=== PATIENT | male | born 1980 | race Caucasian/White ===

== ENCOUNTER 2021-02-23 22:10 | Emergency (ER) | payer SELFPAY ==
[2021-02-23 22:23] VITALS: BP 106/76; PULSE 103; RESP 18; TEMP 37; O2SAT 100; BMI 24.2
[2021-02-23 23:13] LABS: Appearance Urine UA CLOUDY; Bilirubin Urine UA NEGATIVE (NEGATIVE); Color Urine UA YELLOW; Glucose Urine UA NEGATIVE (Negative); Ketones Urine UA TRACE (NEGATIVE); Leukocyte Esterase Urine UA TRACE (NEGATIVE); Nitrite Urine UA NEGATIVE (Negative); Occult Blood Urine UA 3+ (Negative); Protein Urine UA 1+ (Negative); Specific Gravity Urine UA 1.025 (1.000-1.035); Urobilinogen Urine UA 0.2 E.U./dL (0.2); pH Urine UA 5.5 (4.5-8.0)
[2021-02-23 23:20] LABS: RBC Urine 30-100/HPF (0-5/HPF); WBC Urine 0-1/HPF (0-5/HPF)
[2021-02-23 23:21] LABS: Bacteria Urine Few (2-10); Mucus Urine 3+ (Negative)
[2021-02-23 23:22] LABS: Culture Indicated Urine Specimen Cultured; Squamous Epithelial Cell Urine 1-5 /HPF (0-5/HPF)
[2021-02-23 23:23] VITALS: PULSE 98; RESP 20; TEMP 36.9; O2SAT 98
--- NOTE | 2021-02-23 23:57 | DI.CT.S_ITS ---
PROCEDURE: CT ABDOMEN PELVIS WO/W CON INDICATIONS: painless hematuria TECHNIQUE: Optional 5 mm thick noncontrast images acquired from the diaphragm to the symphysis pubis. After the administration of intravenous contrast, 5 mm thick images acquired from the diaphragm to the symphysis pubis after a 10-minute delay. 2 mm thick coronal and sagittal reformats were then performed of the kidneys and ureters. For radiation dose reduction, the following was used: automated exposure control, adjustment of mA and/or kV according to patient size. COMPARISON: None. FINDINGS: Image quality: Excellent. Lung bases: Lung bases are clear. Heart size is normal. Tiny hiatal hernia. Urinary system: Both kidneys are normal in size, without hydronephrosis or nephrolithiasis on pre-contrast images. No perinephric fat stranding. There is normal bilateral renal enhancement. Renal calyces appear normal in morphology when filled with contrast. Opacified portions of both ureters demonstrate normal caliber. Bladder is mildly distended. Bladder wall thickness is normal. No calcified bladder stones. Other solid organs: Liver is normal in size and enhancement. Gallbladder is normal. Biliary system is non dilated. Pancreas enhances normally. Spleen is normal in size and enhancement. No adrenal nodules. Peritoneum and bowel: Bowel loops demonstrate normal wall thickness and caliber. There is a large amount of stool in colon. No free fluid or air. Nodes and vessels: No retroperitoneal or mesenteric adenopathy by size criteria. Aorta and inferior vena cava are normal in size. Abdominal wall: No ventral hernias. Pelvis: No pathologic free pelvic fluid. No inguinal hernias. Mildly enlarged inguinal lymph nodes are present measuring 1.5 cm on the right and 1.0 cm on the left. Bones: No suspicious bony lesions. No vertebral body compression fractures. IMPRESSION: 1. A cause for painlesss hematuria is not identified. 2. Mildly distended urinary bladder, which could be secondary to urinary holding or urinary retention. 3. Mild inguinal lymphadenopathy bilaterally, most likely reactive. Recommend clinical follow-up. 4. A large amount of stool in colon. No significant discrepancy with the [employer] 2nd shift radiology preliminary report. Dictated by: Niru Chambers M.D. on 02/24/2021 at 7:19 Approved by: Niru Chambers M.D. on 02/24/2021 at 7:25
--- NOTE | 2021-02-24 00:02 | ED.MALEGU ---
HPI - Male Genitourinary General Chief complaint: Urogenital-Male Stated complaint: Peeing Blood Time Seen by Provider: 02/23/21 22:28 Source: patient Mode of arrival: Ambulatory Limitations: no limitations History of Present Illness HPI Narrative: 40-year-old male nonsmoker with noncontributory medical history presents with a chief complaint of 24 hours of painless hematuria. He denies any fever chills nor back pain or suprapubic pain. He does have some discomfort with urination and states that at times it is pure blood that he has out and other times it is urine that is blood tinged. He denies any recent dietary change trauma or injury. He denies use of blood thinners. He is not dizzy nor weak or lightheaded denies fever or chills. Related Data Previous Rx's Medication Instructions Recorded epinephrine 0.3 mg/0.3 mL 0.3 mg IJ PRN PRN #1 eddie 06/01/16 injection, auto-injector Allergies Allergy/AdvReac Type Severity Reaction Status Date / Time shellfish derived Allergy Verified 02/23/21 22:23 Review of Systems Review of Systems Narrative: GENERAL: Denies chills, fatigue, malaise, fever, sweats. HEENT: Denies sinus pain, ear pain, sore throat, difficulty swallowing, dizziness. RESPIRATORY: Denies dyspnea, cough, wheezing, hemoptysis, sputum. CARDIOVASCULAR: Denies chest pain, palpitations, orthopnea, edema, GASTROINTESTINAL: Denies nausea, vomiting, abdominal pain, diarrhea, constipation, melena. : See HPI MUSCULOSKELETAL: denies weakness, joint pain, or bony pain SKIN: Denies rash, skin lesions, or other NEUROLOGIC: Denies weakness, headache, numbness, change in speech, confusion, seizures, incoordination. PSYCHIATRIC: No concerning psychosocial issues. 12 point review of systems is negative except for those stated above Patient History Social History Smoking Status: Never smoker Smoking Status: Never smoker Substance Use Type: does not use Exam Narrative Exam Narrative: GENERAL: [40] year old patient appears stated age. Well-developed patient, in mild distress. HEAD: Atraumatic. Normocephalic. EYES: Pupils equal round and reactive. Extraocular motions intact. No scleral icterus. No injection or drainage. ENT: Nose without bleeding, purulent drainage. Throat without erythema, tonsillar hypertrophy or exudate. Airway patent. NECK: Trachea midline. Non tender CARDIOVASCULAR: Regular rate and rhythm without murmurs, gallops, or rubs. RESPIRATORY: Clear to auscultation. Breath sounds equal bilaterally. No wheezes, rales, or rhonchi. GASTROINTESTINAL: Abdomen soft, non-tender, nondistended. EXTREMITIES: No edema or joint tenderness. BACK: Nontender without deformity or crepitance. No flank tenderness. NEURO: AOx3. SKIN: No rash or erythema of visible areas Initial Vital Signs Initial Vital Signs: Vital Signs Temperature 98.6 F 02/23/21 22:23 Pulse Rate 103 H 02/23/21 22:23 Respiratory Rate 18 02/23/21 22:23 Blood Pressure 106/76 02/23/21 22:23 Pulse Oximetry 100 02/23/21 22:23 Course Orders Ordered: ED Orders 02/23/21 22:45 Urinalysis and Microscopic Stat Urine Culture Stat 02/23/21 23:57 CT abdomen pelvis wo/w con Stat Basic Metabolic Panel Stat Complete Blood Count AUTO DIFF Stat Discontinued Medications Sodium Chloride (Normal Saline 0.9%) 1,000 mls @ 1,000 mls/hr IV BOLUS ONE Stop: 02/24/21 00:56 Last Admin: 02/24/21 00:17 Dose: 1,000 mls/hr Documented by: GONZÁLEZ Ketorolac Tromethamine (Ketorolac 30 Mg/Ml Vial) 15 mg IV NOW ONE Stop: 02/24/21 00:53 Last Admin: 02/24/21 01:15 Dose: 15 mg Documented by: GONZÁLEZ Vital Signs Vital signs: Vital Signs - 8 hr 02/23/21 22:23 02/23/21 23:23 Temperature 98.6 F 98.4 F Pulse Rate 103 H 98 H Respiratory Rate 18 20 Blood Pressure 106/76 Pulse Oximetry 100 98 MDM - Male Genitourinary Lab Data Result diagrams: 02/24/21 00:10 02/24/21 00:10 Labs: Lab Results 02/23/21 02/24/21 02/24/21 Range/Units 22:45 00:10 00:10 WBC 5.5 (4.5-11.0) X10^3/uL RBC 4.66 (4.5-5.9) X10^6/uL Hgb 13.7 (13.5-17.5) g/dL Hct 41.2 (41-53) % MCV 88.4 (80-100) fL MCH 29.4 (26-34) PG MCHC 33.2 (30-36) % RDW 12.3 (11.6-14.8) % Plt Count 203 (150-400) X10^3/uL Neut % (Auto) 60.0 (50-75) % Lymph % (Auto) 23.6 L (25-40) % [place] % (Auto) 10.0 (3-14) % Eos % (Auto) 5.8 H (2-4) % Baso % (Auto) 0.6 (0-2) % Neut # (Auto) 3300 (9589-5972) /uL Lymph # (Auto) 1300 (0121-4603) /uL [place] # (Auto) 600 (0-900) /uL Eos # (Auto) 300 (0-450) /uL Baso # (Auto) 0 (0-100) /uL Sodium 138 (137-145) mmol/L Potassium 4.3 (3.4-5.1) mmol/L Chloride 101 (98-107) mmol/L Carbon Dioxide 32 (22-32) mmol/L BUN 17 (9-20) mg/dL Creatinine 1.01 (0.66-1.25) mg/dL Estimated GFR > 60.0 (>60) mL/min BUN/Creatinine Ratio 16.8 (6-22) Glucose 99 (70-100) mg/dL Calcium 9.0 (8.4-10.2) mg/dL Urine Color Yellow Urine Appearance Cloudy Urine pH 5.5 (4.5-8.0) Ur Specific [place] 1.025 (1.000-1.035) Urine Protein 1+ H (Negative) Urine Glucose (UA) Negative (Negative) g/dL Urine Ketones Trace H (NEGATIVE) Urine Occult Blood 3+ H (Negative) Urine Nitrate Negative (Negative) Urine Bilirubin Negative (NEGATIVE) Urine Urobilinogen 0.2 (0.2) E.U./dL Ur Leukocyte Esterase Trace H (NEGATIVE) Urine RBC 30-100/hpf H (0-5/HPF) Urine WBC 0-1/hpf (0-5/HPF) Ur Squamous Epith Cells 1-5 /hpf (0-5/HPF) Urine Bacteria Few (2-10) H (None) Urine Mucus 3+ H (Negative) Ur Culture Indicated? Specimen cultured Imaging Data CT scan - abdomen/pelvis: Radiologist's Impression: Mild distension of the right aspect of the colon the stool, no renal mass, no hydronephrosis, no kidney stone MDM Narrative Medical decision making narrative: Patient with painless hematuria and a very reassuring physical exam and labs. CT IVP shows no concerning findings or symptoms. Patient has stable vitals, return precautions given, stressed the importance of follow-up with Urology. Questions answered to his apparent satisfaction Discharge Plan Departure Patient Disposition: Home Clinical Impression: Hematuria Activity Restrictions/Additional Instructions: *You have been diagnosed with [hematuria without evidence of anemia, infection, or findings on CT scan.] *What to do: *Please continue to take your regular medications as directed. [ ] New medication prescriptions sent to your pharmacy: [ ] [ ] New medication written as a paper prescription [ x] No new medications given *Please follow up with Dr. Hopson of Urology in 2-3 days, call for an appointment. Let them know you were seen in the Emergency Department and that we ask that you be seen in follow up. We will electronically transmit a record of today's note if your PCP is in our system *If you do not have a primary care provider please contact the [facility] Resource line at [phone]. They will ask some questions about your medical history and help get you set up with a doctor in the community. *Return to Emergency Department if you should have any new, worsening or concerning symptoms, such as [fever greater than 101 F, shaking chills, worsening pain, persistent vomiting or other bothersome symptoms] Prescriptions: No Action epinephrine 0.3 MG/0.3 ML auto-injector 0.3 mg IJ PRN PRNQty: 1 RF: 0 Referrals: Salinas Oneal MD [Primary Care Provider] - Karen Hopson MD [Physician] -
[2021-02-24] MEDS: SODIUM CHLORIDE 0.9% 1,000 ML 1000 ML IV (00:17)
[2021-02-24 00:20] LABS: Add Manual Diff / Slide Review NO; Basophils Absolute Auto 0 /uL (0-100); Basophils Percent Auto 0.6 % (0-2); Eosinophils Absolute Auto 300 /uL (0-450); Eosinophils Percent Auto 5.8 % (2-4); Hematocrit 41.2 % (41-53); Hemoglobin 13.7 g/dL (13.5-17.5); Lymphocytes Absolute Auto 1300 /uL (1100-4500); Lymphocytes Percent Auto 23.6 % (25-40); Mean Corpuscular HGB Conc 33.2 % (30-36); Mean Corpuscular Hemoglobin 29.4 PG (26-34); Mean Corpuscular Volume 88.4 fL (80-100); Monocytes Absolute Auto 600 /uL (0-900); Neutrophils Absolute Auto 3300 /uL (1500-7000); Platelet Count 203 X10^3/uL (150-400); Red Blood Cell Count 4.66 X10^6/uL (4.5-5.9); Red Cell Distribution Width 12.3 % (11.6-14.8); White Blood Cell Count 5.5 X10^3/uL (4.5-11.0)
[2021-02-24 00:32] LABS: BUN Creatinine Ratio 16.8 (6-22); Blood Urea Nitrogen 17 mg/dL (9-20); Carbon Dioxide 32 mmol/L (22-32); Chloride 101 mmol/L (98-107); Estimated Glomerular Filt Rate > 60.0 mL/min (>60); Glucose 99 mg/dL (70-100); HEMOLYSIS < 15 (0-50); Potassium 4.3 mmol/L (3.4-5.1); Sodium 138 mmol/L (137-145)
[2021-02-24] MEDS: KETOROLAC 30 MG/ML VIAL 15 MG IV (01:15)
== END 2021-02-24 02:46 | disposition home or self-care (01) ==
PROVIDERS: Emergency Provider Emergency Medicine; Family Provider Family Medicine; PCP Family Medicine
DX: R31.9 Hematuria, unspecified (principal)
CPT/HCPCS: 36415; 74178; 80048; 81001; 85025; 87086; 96361; 96374; 99284; J1885; Q9967